=== PATIENT | female | born 1995 | race African-American/Black ===

== ENCOUNTER 2020-04-20 21:39 | Emergency (ER) | payer MEDICAID ==
[~2020-04-20] VITALS: Ht 162.6 cm; Wt 73.0 kg
[~2020-04-20 21:39] MED LIST: PREN-88 PO; QUET25TA PO
[2020-04-20 21:51] VITALS: BP 132/70
[2020-04-20] MEDS ORDERED: ACETAMINOPHEN 325MG TABLET PO ONE (23:15)
== END 2020-04-20 23:36 | disposition left against medical advice (07) ==
LOC: ER 21:39
DX: R51 Headache (principal); R03.0 Elevated blood-pressure reading, without diagnosis of hypertension; G40.909 Epilepsy, unspecified, not intractable, without status epilepticus
CPT/HCPCS: 99283

== ENCOUNTER 2022-05-27 12:27 | Emergency (ER) | payer MEDICAID ==
[~2022-05-27] VITALS: Ht 170.2 cm; Wt 61.0 kg
[2022-05-27 12:48] VITALS: BP 104/68
[2022-05-27] MEDS ORDERED: ONDANSETRON HCL 4MG/2ML INJ IV STA (13:14)
[2022-05-27] MEDS ORDERED: SODIUM CHLORIDE 0.9% 1,000 ML IV ONE (13:15)
[2022-05-27] MEDS ORDERED: LEVETIRACETAM 1000MG PREMIX 100 ML IV ONE (13:15)
[2022-05-27 13:37] LABS: CHLORIDE 106 mEq/L (98-107)
[2022-05-27 13:40] LABS: BASOPHILS % 0.2 % (0.0-2.0); EOSINOPHILS % 0.8 % (0.0-5.0); HEMATOCRIT. 34.4 % (36.0-48.0); HEMOGLOBIN. 11.7 g/dL (12.0-16.0); LYMPHOCYTES % 27.5 % (20.0-50.0); MEAN CORPUSCULAR HEMOGLOBIN 32.2 pg (28.0-32.0); MEAN CORPUSCULAR VOLUME 94.4 fL (81.0-99.0); MONOCYTES % 6.3 % (2.0-8.0); NEUTROPHILS % 65.2 % (40.0-76.0); PLATELET 206 x1000/uL (130-400); RED BLOOD CELL COUNT 3.65 mill/uL (4.2-5.4); RED CELL DISTRIBUTION WIDTH 14.1 % (11.6-14.6)
[2022-05-27 13:45] LABS: ETHANOL BLOOD < 10 mg/dL
[2022-05-27] MEDS ORDERED: KEPP500 MT (17:38)
== END 2022-05-27 18:35 | disposition home or self-care (01) ==
LOC: ER 12:33
DX: O26.891 Other specified pregnancy related conditions, first trimester (principal); R56.9 Unspecified convulsions; F12.10 Cannabis abuse, uncomplicated; Z91.14 Patient's other noncompliance with medication regimen; Z88.1 Allergy status to other antibiotic agents; Z3A.08 8 weeks gestation of pregnancy
CPT/HCPCS: 36415; 70551; 76801; 76817; 80053; 80320; 85025; 93005; 96374; 99285; J1953; J2405; J7030; G0480

== ENCOUNTER 2022-09-12 22:20 | Emergency (ER) | payer MEDICAID ==
[~2022-09-12] VITALS: Ht 162.6 cm; Wt 79.1 kg
[~2022-09-12 22:20] MED LIST changes: +KEPP500 MT
[2022-09-12 22:55] VITALS: BP 103/53
[2022-09-13] MEDS ORDERED: FERR325T23 MT (00:39)
== END 2022-09-12 23:27 | disposition home or self-care (01) ==
LOC: ER 22:20
DX: O26.892 Other specified pregnancy related conditions, second trimester (principal); R05.9 Cough, unspecified; R10.9 Unspecified abdominal pain; M54.59 Other low back pain; Z3A.23 23 weeks gestation of pregnancy
CPT/HCPCS: 99281

== ENCOUNTER 2022-09-12 23:33 | Observation (INO) | payer MEDICAID ==
[~2022-09-12] VITALS: Ht 162.6 cm; Wt 79.0 kg
[2022-09-13] MEDS ORDERED: FERR325T23 MT (00:39)
[2022-09-13] MEDS ORDERED: LACTATED RINGERS 1,000 ML IV SCH (01:00)
[2022-09-13] MEDS ORDERED: ONDANSETRON HCL 4MG/2ML INJ IV PRN (01:00)
[2022-09-13 02:07] LABS: BASOPHILS % 0.2 % (0.0-2.0); CLARITY URINE CLEAR (CLEAR); COLOR URINE YELLOW (YELLOW); HEMATOCRIT. 32.7 % (36.0-48.0); HEMOGLOBIN. 11.2 g/dL (12.0-16.0); KETONES URINE NEGATIVE (NEGATIVE); LEUKOCYTE ESTERASE URINE NEGATIVE (NEGATIVE); LYMPHOCYTES % 30.4 % (20.0-50.0); MEAN CORPUSCULAR HEMOGLOBIN 32.9 pg (28.0-32.0); MEAN CORPUSCULAR VOLUME 95.7 fL (81.0-99.0); MEAN PLATELET VOLUME 9.2 fl (7.4-10.4); MONOCYTES % 7.6 % (2.0-8.0); NEUTROPHILS % 60.8 % (40.0-76.0); NITRITE URINE NEGATIVE (NEGATIVE); OCCULT BLOOD URINE NEGATIVE (NEGATIVE); PH URINE 6.5 (4.5-8.0); PLATELET 207 x1000/uL (130-400); PROTEIN URINE NEGATIVE (NEGATIVE); RED BLOOD CELL COUNT 3.41 mill/uL (4.2-5.4); RED CELL DISTRIBUTION WIDTH 14.2 % (11.6-14.6); SPECIFIC GRAVITY URINE 1.019 (1.005-1.030); UROBILINOGEN URINE 0.2 E.U./dL (0.2-1.0)
[2022-09-13 02:20] LABS: CHLORIDE 107 mEq/L (98-107)
== END 2022-09-13 04:25 | disposition home or self-care (01) ==
LOC: 8 EST LDRP 23:33
PROVIDERS: ADMIT Obstetrics & Gynecology; ATTEND Obstetrics & Gynecology
DX: O99.891 Other specified diseases and conditions complicating pregnancy (principal); M54.9 Dorsalgia, unspecified; O26.892 Other specified pregnancy related conditions, second trimester; R10.30 Lower abdominal pain, unspecified; O21.2 Late vomiting of pregnancy; O62.9 Abnormality of forces of labor, unspecified; Z3A.24 24 weeks gestation of pregnancy
CPT/HCPCS: 36415; 59025; 76805; 80053; 81003; 85025; 96360; 96361; 99281; G0378; J2405

== ENCOUNTER 2022-10-28 09:23 | Observation (INO) | payer MEDICAID ==
[~2022-10-28] VITALS: Ht 162.6 cm; Wt 79.4 kg
[~2022-10-28 09:23] MED LIST changes: +FERR325T23 MT
[2022-10-28] MEDS ORDERED: LACTATED RINGERS 1,000 ML IV SCH (10:00)
[2022-10-28] MEDS ORDERED: ONDANSETRON HCL 4MG/2ML INJ IV PRN (10:30)
[2022-10-28] MEDS ORDERED: PYRIDOXINE 100 MG/ML 1ML IM SCH (11:00)
[2022-10-28] MEDS ORDERED: FOLIC ACID 1 MG, THIAMINE HCL 100 MG, MVI, ADULT NO.1 10 ML in DEXTROSE 5% WATER 1,000 ML IV SCH ×4 (11:00)
[2022-10-28] MEDS ORDERED: CITRIC ACID/SODIUM CITRATE SOLN 30ML UDC PO NR (11:00)
[2022-10-28 11:14] LABS: CHLORIDE 107 mEq/L (98-107)
== END 2022-10-28 12:30 | disposition home or self-care (01) ==
LOC: 8 EST A/PP 09:23
PROVIDERS: ADMIT Obstetrics & Gynecology; ATTEND Obstetrics & Gynecology
DX: O21.2 Late vomiting of pregnancy (principal); Z3A.30 30 weeks gestation of pregnancy
CPT/HCPCS: 36415; 59025; 80053; 96365; 96366; 96372; 96375; G0378; G0379; J2405; J3411; J3415; J3490; J7070; 96360; 96361; 99281; J7120

== ENCOUNTER 2022-12-29 10:20 | Observation (INO) | payer MEDICAID ==
[~2022-12-29] VITALS: Ht 162.6 cm; Wt 79.4 kg
== END 2022-12-29 14:45 | disposition home or self-care (01) ==
LOC: 8 EST LDRP 10:20 → INTOOBSV 10:20
PROVIDERS: ADMIT Obstetrics & Gynecology; ATTEND Obstetrics & Gynecology
DX: O26.893 Other specified pregnancy related conditions, third trimester (principal); R10.9 Unspecified abdominal pain; N89.8 Other specified noninflammatory disorders of vagina; Z3A.38 38 weeks gestation of pregnancy
CPT/HCPCS: 59025; 76805; 76818; G0378; 99281; G0379

== ENCOUNTER 2023-01-05 06:34 | Inpatient (IN) | payer MEDICAID ==
[~2023-01-05] VITALS: Ht 162.6 cm; Wt 79.4 kg
[2023-01-05] MEDS ORDERED: NALOXONE HCL 0.4 MG/ML 1ML VIAL IM PRN (09:00)
[2023-01-05] MEDS ORDERED: LACTATED RINGERS 1,000 ML IV SCH (09:00)
[2023-01-05] MEDS ORDERED: MISOPROSTOL 100MCG TABLET VG SCH (09:00)
[2023-01-05] MEDS ORDERED: LIDOCAINE HCL 1% 20ML VIAL (Pyxis) INJ INFIL SCH (09:00)
[2023-01-05] MEDS ORDERED: BUTORPHANOL TARTRATE 2 MG/ML VIAL IV PRN (09:00)
[2023-01-05] MEDS ORDERED: PENICILLIN G POTASSIUM 5 MMU in DEXT 5% WATER 100 ML IV SCH (10:00)
[2023-01-05 11:06] LABS: BASOPHILS % 0.2 % (0.0-2.0); EOSINOPHILS % 0.2 % (0.0-5.0); HEMATOCRIT. 33.5 % (36.0-48.0); HEMOGLOBIN. 11.5 g/dL (12.0-16.0); LYMPHOCYTES % 22.5 % (20.0-50.0); MEAN CORPUSCULAR HEMOGLOBIN 32.3 pg (28.0-32.0); MEAN CORPUSCULAR VOLUME 94.1 fL (81.0-99.0); MEAN PLATELET VOLUME 7.8 fl (7.4-10.4); MONOCYTES % 7.9 % (2.0-8.0); NEUTROPHILS % 69.2 % (40.0-76.0); PLATELET 241 x1000/uL (130-400); RED BLOOD CELL COUNT 3.56 mill/uL (4.2-5.4)
[2023-01-05] MEDS: LEVETIRACETAM 500MG TABLET PO SCH ×2 (11:10→22:38)
[2023-01-05 11:11] LABS: INR 0.9; PARTIAL THROMBOPLASTIN TIME 27.1 sec (23.4-31.0); PROTHROMBIN TIME 9.9 sec (9.6-11.0)
[2023-01-05] MEDS: OXYTOCIN 30 UNITS/500ML NS PMX 500 ML IV SCH (11:50)
[2023-01-05] MEDS ORDERED: PENICILLIN G POTASSIUM 2.5 MMU in DEXTROSE 5% WATER 50 ML IV SCH (14:00)
[2023-01-05 14:13] LABS: HEPATITIS B SURFACE ANTIGEN NEGATIVE
[2023-01-05] MEDS ORDERED: ROPIVACAINE HCL/PF EPIDURAL 200 ML EPI ONE (18:53)
[2023-01-05] MEDS ORDERED: ROPIVACAINE HCL/PF EPIDURAL 200 ML EPI SCH (19:00)
[2023-01-05] MEDS ORDERED: FENTANYL CITRATE/PF 50MCG/ML 2ML VIAL ONE (19:54)
[2023-01-06] MEDS ORDERED: OXYTOCIN 30 UNITS/500ML NS PMX 500 ML IV SCH
[2023-01-06] MEDS ORDERED: IBUPROFEN 400MG TABLET PO PRN
[2023-01-06] MEDS ORDERED: METHYLERGONOVINE MALEATE 0.2 MG/ML IM PRN
[2023-01-06] MEDS ORDERED: RHO(D) IMMUNE GLOBULIN 300 MCG/SYR IM PRN
[2023-01-06] MEDS: OXYTOCIN 30 UNITS/500ML NS PMX 500 ML IV SCH (00:22)
[2023-01-06] MEDS: IBUPROFEN 800MG TABLET PO PRN ×3 (01:29→22:37)
[2023-01-06 02:00] VITALS: BP 115/74
[2023-01-06 04:00] VITALS: BP 116/80
[2023-01-06 05:37] LABS: *AMPHETAMINES SCREEN URINE NEGATIVE (NEGATIVE); *BARBITURATES SCREEN URINE NEGATIVE (NEGATIVE); *BENZODIAZEPINES SCREEN URINE NEGATIVE (NEGATIVE); *COCAINE SCREEN URINE NEGATIVE (NEGATIVE); METHADONE URINE SCREEN NEGATIVE (NEGATIVE); OPIATES URINE SCREEN NEGATIVE (NEGATIVE); PHENCYCLIDINE URINE SCREEN NEGATIVE (NEGATIVE)
[2023-01-06 05:50] LABS: CANNABINOID URINE SCREEN PRESUMTIVE POSITIVE (NEGATIVE)
[2023-01-06] MEDS ORDERED: BENZOCAINE/LANOLIN/ALOE VERA SPRAY TOP PRN (07:15)
[2023-01-06] MEDS ORDERED: LEVETIRACETAM 500MG TABLET PO SCH (09:00)
[2023-01-06 09:30] VITALS: BP 118/76
[2023-01-06] MEDS: LEVETIRACETAM 500MG TABLET PO SCH (09:52)
[2023-01-06] MEDS: DOCUSATE SODIUM 100MG CAPSULE PO SCH ×2 (09:54→22:37)
[2023-01-06] MEDS: PRENATAL VIT/FE FUMARATE/FA TABLET PO SCH (09:54)
[2023-01-06 13:26] LABS: BASOPHILS % 0.2 % (0.0-2.0); EOSINOPHILS % 0.4 % (0.0-5.0); HEMATOCRIT. 32.7 % (36.0-48.0); HEMOGLOBIN. 10.9 g/dL (12.0-16.0); LYMPHOCYTES % 19.8 % (20.0-50.0); MEAN CORPUSCULAR HEMOGLOBIN 31.8 pg (28.0-32.0); MEAN CORPUSCULAR VOLUME 95.3 fL (81.0-99.0); MEAN PLATELET VOLUME 7.7 fl (7.4-10.4); MONOCYTES % 7.5 % (2.0-8.0); NEUTROPHILS % 72.1 % (40.0-76.0); PLATELET 221 x1000/uL (130-400); RED BLOOD CELL COUNT 3.43 mill/uL (4.2-5.4); RED CELL DISTRIBUTION WIDTH 14.4 % (11.6-14.6)
[2023-01-06 15:00] VITALS: BP 110/78
[2023-01-06 20:00] VITALS: BP 106/62
[2023-01-07 04:30] VITALS: BP 105/68
[2023-01-07] MEDS: IBUPROFEN 800MG TABLET PO PRN (05:21)
[2023-01-07 08:00] VITALS: BP 106/69
[2023-01-07] MEDS: LEVETIRACETAM 500MG TABLET PO SCH ×2 (09:21→21:35)
[2023-01-07] MEDS: PRENATAL VIT/FE FUMARATE/FA TABLET PO SCH (09:21)
[2023-01-07 16:00] VITALS: BP 115/67
[2023-01-07 20:00] VITALS: BP 113/70
[2023-01-07] MEDS: DOCUSATE SODIUM 100MG CAPSULE PO SCH (21:34)
[2023-01-08] MEDS: IBUPROFEN 800MG TABLET PO PRN (02:52)
[2023-01-08 03:30] VITALS: BP 112/76
[2023-01-08 08:00] VITALS: BP 110/67
[2023-01-08] MEDS: PRENATAL VIT/FE FUMARATE/FA TABLET PO SCH (08:50)
[2023-01-08] MEDS: LEVETIRACETAM 500MG TABLET PO SCH (08:51)
== END 2023-01-08 12:32 | disposition home or self-care (01) | DRG 560 ==
LOC: 8 EST LDRP 06:34 → OBSVTOIN 08:46 → 8EST 01-06 07:06
PROVIDERS: ADMIT Obstetrics & Gynecology; ATTEND Obstetrics & Gynecology
PROC: 10E0XZZ Delivery of Products of Conception, External Approach (ICD-10-PCS; principal; 2023-01-05)
PROC: 3E0R3BZ Introduction of Anesthetic Agent into Spinal Canal, Percutaneous Approach (ICD-10-PCS; 2023-01-05)
PROC: 00HU33Z Insertion of Infusion Device into Spinal Canal, Percutaneous Approach (ICD-10-PCS; 2023-01-05)
DX: O99.354 Diseases of the nervous system complicating childbirth (principal); Z37.0 Single live birth; G40.909 Epilepsy, unspecified, not intractable, without status epilepticus; F32.A Depression, unspecified; O99.344 Other mental disorders complicating childbirth; O99.02 Anemia complicating childbirth; F60.3 Borderline personality disorder; Z3A.39 39 weeks gestation of pregnancy; Z88.1 Allergy status to other antibiotic agents
CPT/HCPCS: 36415; 80305; 80349; 85025; 86592; 86762; 86850; 86900; 87340; 99281; G0378; J2540; J2795; J3010; J7060; J7120; A4315; J2590